=== PATIENT | male | born 1960 | race Caucasian/White ===

== ENCOUNTER 2018-03-29 08:05 | Emergency (ER) | payer SELFPAY ==
[~2018-03-29] VITALS: Ht 170.2 cm; Wt 70.0 kg
[2018-03-29 08:07] VITALS: BP 147/75; PULSE 71; RESP 16; TEMP 98; O2SAT 97
[2018-03-29] MEDS ORDERED: KETOROLAC TROMETHAMINE 60 MG/2 ML (IM) VIAL IM ONE (09:30)
[2018-03-29] MEDS ORDERED: ORPHENADRINE INJ 60 MG/2 ML AMP IM ONE (09:30)
--- NOTE | 2018-03-29 10:12 | PD ---
HPI Chief Complaint: Back/ Neck Pain or Injury Time Seen by Provider: 09:10 Travel History International Travel<30 days: No Contact w/Intl Traveler<30days: No Traveled to known affect area: No History of Present Illness HPI 57-year-old male here with low back pain 3 days. 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 He cannot recall a specific injury. He reports he has pain in the low back that intermittently radiates down the left buttocks into the leg. Symptom severity is moderate. He denies fever, incontinence, saddle anesthesia, altered sensation or weakness of the extremity. The pain is aggravated by movement and slightly relieved with rest. PFSH Past Medical History Hx Anticoagulant Therapy: No Diabetes: No Musculoskeletal: Yes (back pain) Tetanus Vaccination: > 5 Years Influenza Vaccination: No Social History Alcohol Use: Yes (occ) Tobacco Use: Yes Allergies-Medications (Allergen,Severity, Reaction): Coded Allergies: No Known Allergies (Unverified , 03/29/18) Reported Meds & Prescriptions Reported Meds & Active Scripts Active Ketorolac (Ketorolac Tromethamine) 10 Mg Tab 10 Mg PO TID Robaxin (Methocarbamol) 750 Mg Tab 750 Mg PO QID Review of Systems Except as stated in HPI: all other systems reviewed are Neg General / Constitutional: No: Fever Eyes: No: Visual changes HENT: No: Headaches Cardiovascular: No: Chest Pain or Discomfort Respiratory: No: Shortness of Breath Gastrointestinal: No: Abdominal Pain Genitourinary: No: Dysuria Physical Exam Narrative GENERAL: Alert and well-appearing 57-year-old male SKIN: Warm and dry. HEAD: Normocephalic. EYES: No scleral icterus. No injection or drainage. NECK: Supple CARDIOVASCULAR: Regular rate and rhythm RESPIRATORY: Breath sounds equal bilaterally. No accessory muscle use. GASTROINTESTINAL: Abdomen soft, non-tender, nondistended. MUSCULOSKELETAL: No cyanosis, or edema. Normal strength and sensation in lower extremities. Ambulates with a steady gait. Equal and palpable DP pulses. BACK: + Tenderness to palpation of the lumbar region including the lumbar spine and paravertebral musculature. No step-off deformity. Negative straight leg raise. No CVA tenderness. Data Data Last Documented VS Vital Signs Date Time Temp Pulse Resp B/P (MAP) Pulse Ox O2 Delivery O2 Flow Rate FiO2 03/29/18 08:07 98.0 71 16 147/75 (99) 97 Orders Orders Spine, Lumbar Comp W/Obliq (03/29/18 ) Ketorolac Inj (Toradol Inj) (03/29/18 09:30) Orphenadrine Inj (Norflex Inj) (03/29/18 09:30) Ed Discharge Order (03/29/18 10:50) MDM Medical Decision Making Medical Screen Exam Complete: Yes Emergency Medical Condition: Yes Differential Diagnosis Lumbar fracture versus lumbar strain versus sciatica Narrative Course 57-year-old male here with low back pain. He has a normal neurologic exam. X- ray lumbar spine is negative for fracture. He was given a shot of Toradol reports symptom improvement. He is stable and ready for discharge. Diagnosis Primary Impression: Lumbar strain Qualified Codes: S39.012A - Strain of muscle, fascia and tendon of lower back , initial encounter Referrals: Primary Care Physician Departure Forms: Tests/Procedures, Work Release Enter return to work date: Apr 01, 2018 Additional Instructions: Medication as directed. Avoid heavy lifting or strenuous activity. Follow-up with your primary doctor. Scripts Ketorolac (Ketorolac) 10 Mg Tab 10 MG PO TID for Pain Management, #12 TAB 0 Refills Prov: Ivana Vargas 03/29/18 Methocarbamol (Robaxin) 750 Mg Tab 750 MG PO QID for Muscle Spasm, #12 TAB 0 Refills Prov: Ivana Vargas 03/29/18 Disposition: 01 DISCHARGE HOME Condition: Stable Ivana Vargas Mar 29, 2018 10:12
--- NOTE | 2018-03-29 10:29 | RADRPT ---
EXAM DATE: 03/29/2018 10:03 AM EDT AGE/SEX: 57 years / Male INDICATIONS: Lumbar back pain after twisting CLINICAL DATA: This is the patient's initial encounter. Patient reports that signs and symptoms have been present for 1 day and indicates a pain score of 10/10. MEDICAL/SURGICAL HISTORY: . . COMPARISON: No prior [facility] exams available for comparison. FINDINGS: 5 non-ribbed lumbar-type vertebral bodies. Mild levoscoliosis of the lumbar spine with associated mul tilevel degenerative changes. Vertebral body heights are maintained without fracture. Marginal spurri ng is seen at multiple levels with minimal chronic wedge deformity at T12. Atherosclerotic calcificat ion of the regional vasculature. Small calculi project over the lower poles of both kidneys, the larg est on the right measuring 8 mm in diameter CONCLUSION: 1. Chronic changes with multilevel degenerative disc disease and marginal spurring. No acute fractur e. 2. Bilateral renal calculi, the largest projects over the lower pole and the right measuring 8 mm in diameter. Electronically signed by: Jericho Bauer MD 03/29/2018 10:28 AM EDT
[2018-03-29] MEDS ORDERED: ROBA750T PO (10:49)
[2018-03-29] MEDS ORDERED: KETO10 PO (10:49)
== END 2018-03-29 11:01 | disposition home or self-care (01) ==
LOC: PHED 08:05
DX: S39.012A Strain of muscle, fascia and tendon of lower back, initial encounter (principal); X58.XXXA Exposure to other specified factors, initial encounter; Z72.0 Tobacco use
CPT/HCPCS: 72110; 96372; 99283; J1885; J2360